=== PATIENT | male | born 1950 | race Caucasian/White ===

== ENCOUNTER 2016-05-22 14:33 | Emergency (ER) | payer MEDICARE, OTHER ==
--- NOTE | 2016-05-22 15:42 | ERNOTE ---
Dyspnea - Date Date of Service: 05/22/16 - General Presenting Symptoms: shortness of breath Time Seen by Provider: 05/22/16 15:31 Source: patient, RN notes reviewed, old records Exam Limitations: no limitations - Immun/Allergies/Home Medications Immunizations: IMMUNIZATION HX Immunizations Up to Date No History of Influenza Vaccine No Hx Pneumococcal Vaccination No Allergies/Adverse Reactions: Allergies No Known Allergies Allergy (Verified 05/22/16 14:47) Home Medications: HOME MEDICATIONS Albuterol Sulfate [Proair Hfa] 8.5 gm IH Q6H PRN 04/26/12 [Last Taken Unknown] Budesonide/Formoterol Fumarate [Symbicort 160-4.5 Mcg Inhaler] 6 gm IH BID 04/26 [Last Taken Unknown] Venlafaxine HCl [Effexor Xr] 75 mg PO DAILY 04/26/12 [Last Taken Unknown] amLODIPine BESYLATE [Norvasc (Amlodipine)] 5 mg PO DAILY 04/26/12 [Last Taken Unknown] metFORMIN HCL [Metformin HCl ER] 1,000 mg PO BID 04/26/12 [Last Taken Unknown] Carbidopa/Levodopa 25/100 [Sinemet 25/100] 1 tab PO BID 05/22/16 [Last Taken Unknown] - History of Present Illness Narrative: 66 y/o male to ED by private vehicle from home for dyspnea that began this morning. He woke up around 0600 and was unable to go back to sleep because of his shortness of breath. He has COPD, but denies any cough. He reports having heartburn earlier today, but this resolved without intervention. The dyspnea does not seem to be related to activity and is occurring intermittently. He denies any cardiac problems. He has chronic lower extremity edema, but reports that it is not worse than usual. 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 Denies: upper resp illness, out of meds, sports/exercise, emotionally upset Modifying Factors - (Improves): Reports: nothing Modifying Factors (Worsens): Reports: nothing Associated Symptoms-Dyspnea: Reports: ankle/leg swelling. Denies: fever/chills , sweating, chest pain/discomfort, palpitations, cough, wheezing, leg/calf pain , dizziness, lightheadedness, anxiety Prior Treatment: Denies: recently seen Review of Systems - Review of Systems Constitutional: Present: fatigue. Absent: recent illness, fever, chills, malaise EYE: Present: no symptoms reported ENT: Absent: nose congestion, sore throat Respiratory: Present: shortness of breath, orthopnea. Absent: cough, wheezing Cardiology: Present: edema. Absent: chest pain, palpitations, claudication Gastrointestinal/Abdominal: Absent: nausea, vomiting, abdominal pain Genitourinary: Present: no symptoms reported Musculoskeletal: Present: no symptoms reported Skin: Absent: rash, lesions, change in color Neurological: Absent: headache, dizziness/light-headedness Endocrine: Present: no symptoms reported Hematologic/Lymphatic: Present: no symptoms reported Psych: Present: See HPI - Patient's Past Medical History Patient History - Medical: Anxiety, Diabetes Type 2, Depression, GERD, Obesity, Osteoarthritis, Other - Parkinson's disease Patient History - Cardiac/Respiratory: COPD, Hypertension Patient History - Cancer: No Hx of Cancer Patient History - Surgical Procedures: Colonoscopy, Total Knee Replacement, T & A, ENT Patient History - Other: None - Social History Living Situations: home Abuse History: No History of abuse Psych History: Hx of Anxiety Smoking Status: Former smoker Smoking Stop Date: 06/16/13 Alcohol Use: none Drug Use: none - Immunizations Immunizations Up to Date: No Hx Pneumococcal Vaccination: No History of Influenza Vaccine: No Physical Exam - Physical Exam General Appearance: Present: wd/wn, alert, no apparent distress, obese Eye Exam: Normal inspection: bilateral Ears, Nose, Throat: Present: normal ENT inspection, normal pharynx. Absent: abnormal TM (R), abnormal TM (L), nasal congestion Neck: Present: nontender, supple, other - edematous area at left lateral neck base - nontender, appears to be lipoma Respiratory: Present: no respiratory distress, normal breath sounds, no accessory muscle use, lungs clear Cardiovascular/Chest: Present: no murmur, normal peripheral pulses, tachycardia Gastrointestinal/Abdominal: Present: normal bowel sounds, nontender, nondistended, soft Extremity Exam: Present: extremity edema - lower legs/feet. Absent: calf tenderness Neurological Exam: Present: alert, oriented, other - Tremors Skin Exam: Present: warm/dry, other - mony discoloration to lower legs ED Progress - Results and Orders Patient's Lab Results:: I have reviewed the patient's lab results. - Vital Signs Patient's Vital Signs:: I have reviewed the patient's vital signs. Vital Signs: Vital Signs 05/22/16 05/22/16 05/22/16 14:39 15:06 15:25 Temperature 36.8 C Pulse Rate 103 H 107 H 106 H Respiratory 24 H 21 H 17 Rate Blood Pressure 179/105 196/100 193/109 O2 Sat by Pulse 98 99 96 Oximetry 05/22/16 15:26 Temperature Pulse Rate 106 H Respiratory Rate Blood Pressure O2 Sat by Pulse Oximetry - EKG EKG: other - Sinus tachycardia EKG read: Reviewed by me - X-Ray X-Ray #1 X-Ray: chest Interpretation: Reviewed by me X-ray Comments: No acute cardiopulmonary findings - Progress/Reassessment Chief Complaint: Dyspnea Progress:: Unchanged Progress Note-Subjective: 05/22/16 17:14 Discussed lab results - elevated Ddimer r/t his dyspnea that occurs without any relation to activity and tachycardia - needs CT for PE but renal function is impaired. Discussed admit overnight for VQ scan tomorrow. Patient is not sure he wants to stay overnight. He contacted his who is coming to discuss the situation. Remains tachycardic at 108 at rest with episodic dyspnea. 05/22/16 18:15 Patient now reports that his will not be here for over an hour. He wants to go home and pack some belonging and shower before being admitted. Informed that he would have to leave AMA. Reiterated my concerns regarding a possible pulmonary embolism and need for further testing. Discussed risks of leaving without appropriate care including . Remains tachycardic at 100-110 with SpO2 in upper 90's. Departure Clinical Impression: Elevated d-dimer Dyspnea Qualifiers: Dyspnea type: shortness of breath Qualified Code(s): R06.02 - Shortness of breath - Departure Disposition: Against medical advice Condition: Undetermined Referrals: Codey Kern MD [Primary Care Provider] -
[2016-05-22 16:11] LABS: Hematocrit 36.8 % (42.0-52.0); Hemoglobin 11.6 gm/dL (13.5-18.0); Mean Cell Volume 83.6 fl (78-100); Mean Corpuscular Hemoglobin 26.4 pg (27-31); Mean Corpuscular Hgb Conc 31.5 g/dl (32-36); Mean Platelet Volume 9.3 fl (6.0-9.5); Neutrophil # 6.3 K/mm3 (1.3-6.0); Neutrophil % 77.1 % (42-75.0); Platelet Count 246 K/mm3 (150-450); Red Cell Distribution Width 13.9 % (11.5-14.0); White Blood Count 8.2 K/mm3 (4.0-10.5)
--- OUTSIDE RECORDS SUMMARY | 2016-05-22 16:11 | XMS REPORT | Continuity of Care Document ---
:1950 Author Organization [facility] ([facility]) Address [address] [place] [address] Phone [phone] Care Team Providers Name Role Phone Unavailable Primary Care Provider Unavailable Source Comments This disclosure is being made pursuant to the Care Everywhere program, applicable federal and state laws, and may not contain all informaitonavailable regarding this patient.[facility] ([facility]) Active Allergies and Adverse Reactions Not on File Current Medications Not on file Active Problems Problem Noted Date Primary localized osteoarthrosis, lower leg 05/05/2000 Social History Tobacco Use Types Packs/Day Years Used Date Never Assessed Last Filed Vital Signs Vital Sign Reading Time Taken Blood Pressure - - Pulse - - Temperature - - Respiratory Rate - - Height 1.79 m (5' 10.47") 05/05/2000 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
[2016-05-22 16:23] LABS: ALT 10 U/L (19-67); AST 20 U/L (0-48); Alkaline Phosphatase * 92 U/L (50-170); Anion Gap 14.7 mmol/L (6.8-13.8); BNP * 257 pg/mL (5-350); BUN/Creatinine Ratio 21.7 (9.0-21.6); Bilirubin, Total 0.3 mg/dL (0.0-1.1); Blood Urea Nitrogen 35 mg/dL (6-23); Calcium * 9.3 mg/dL (7.9-10.9); Carbon Dioxide 26.5 mmol/L (24-32.6); Chloride 102 mmol/L (97-106); Glucose * 111 mg/dL (70-110); Potassium 4.2 mmol/L (3.4-4.6); Sodium 139 mmol/L (132-142); Total Protein 8.1 gm/dL (6.2-8.2)
[2016-05-22 16:26] LABS: Troponin I Less than 0.017 ng/ml (0.00-0.10)
[2016-05-22 17:21] VITALS: BP 191/94
== END 2016-05-22 18:18 | disposition left against medical advice (07) ==
LOC: ER 14:33
DX: R06.02 Shortness of breath (principal); R79.89 Other specified abnormal findings of blood chemistry; Z53.29 Procedure and treatment not carried out because of patient's decision for other reasons; Z87.891 Personal history of nicotine dependence; E11.9 Type 2 diabetes mellitus without complications; I10 Essential (primary) hypertension; J44.9 Chronic obstructive pulmonary disease, unspecified; F41.9 Anxiety disorder, unspecified

== ENCOUNTER 2016-05-22 21:12 | Observation (INO) | payer MEDICARE, OTHER ==
--- OUTSIDE RECORDS SUMMARY | 2016-05-22 21:43 | XMS REPORT | Continuity of Care Document ---
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
--- NOTE | 2016-05-22 21:46 | ERNOTE ---
Dyspnea - Date Date of Service: 05/22/16 - General Presenting Symptoms: shortness of breath Time Seen by Provider: 05/22/16 21:34 Source: patient, RN notes reviewed, old records Exam Limitations: no limitations - Immun/Allergies/Home Medications Immunizations: IMMUNIZATION HX Immunizations Up to Date No History of Influenza Vaccine No Hx Pneumococcal Vaccination No Allergies/Adverse Reactions: Allergies No Known Allergies Allergy (Verified 05/22/16 14:47) Home Medications: HOME MEDICATIONS Albuterol Sulfate [Proair Hfa] 8.5 gm IH Q6H PRN 04/26/12 [Last Taken Unknown] Budesonide/Formoterol Fumarate [Symbicort 160-4.5 Mcg Inhaler] 6 gm IH BID 04/26 [Last Taken Unknown] Venlafaxine HCl [Effexor Xr] 75 mg PO DAILY 04/26/12 [Last Taken Unknown] amLODIPine BESYLATE [Norvasc (Amlodipine)] 5 mg PO DAILY 04/26/12 [Last Taken Unknown] metFORMIN HCL [Metformin HCl ER] 1,000 mg PO BID 04/26/12 [Last Taken Unknown] Carbidopa/Levodopa 25/100 [Sinemet 25/100] 1 tab PO BID 05/22/16 [Last Taken Unknown] - History of Present Illness Narrative: 66 y/o male returns to ED by private vehicle for shortness of breath. He was evaluated for this earlier today by me. No cause was determined for his shortness of breath. This began without incident shortly after he woke up today. It has occurred in intermittent bouts without regard to activity. He denies any chest pain. He denies any cough. His D-dimer was elevated at 0.63. His chest xray was normal. His troponin was negative. His EKG was remarkable only for tachycardia - which continues to be 100 to 110. His creatinine was 1.61 so he was not able to have a CT for PE. I discussed staying overnight and having a VQ scan tomorrow with him, but he left AMA to take care of some things at home. He has continued to have episodic dyspnea throughout the evening. 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 Denies: fever/chills , chest pain/discomfort, palpitations, cough, wheezing, leg/calf pain, dizziness , lightheadedness, anxiety Review of Systems - Review of Systems Constitutional: Absent: recent illness, fever, chills EYE: Present: no symptoms reported ENT: Absent: nose congestion, sore throat Respiratory: Present: shortness of breath, orthopnea - chronic - sleeps in recliner. Absent: cough, wheezing Cardiology: Present: edema - reports not worse than usual. Absent: chest pain, palpitations, syncope, claudication Gastrointestinal/Abdominal: Absent: nausea, vomiting, diarrhea, abdominal pain Genitourinary: Present: no symptoms reported Musculoskeletal: Absent: muscle pain, joint pain Skin: Absent: rash, lesions, lumps, change in color Neurological: Present: tremors. Absent: headache, dizziness/light-headedness Endocrine: Present: no symptoms reported Hematologic/Lymphatic: Present: no symptoms reported Psych: Absent: anxiety - Patient's Past Medical History Patient History - Medical: Anxiety, Diabetes Type 2, Depression, GERD, Obesity, Osteoarthritis, Other Patient History - Cardiac/Respiratory: COPD, Hypertension Patient History - Cancer: No Hx of Cancer Patient History - Surgical Procedures: Colonoscopy, Total Knee Replacement, T & A, ENT Patient History - Other: None - Social History Living Situations: spouse Abuse History: No History of abuse Psych History: Hx of Anxiety Smoking Status: Former smoker - quit 2013 Alcohol Use: none Drug Use: none - Immunizations Immunizations Up to Date: No Hx Pneumococcal Vaccination: No History of Influenza Vaccine: No Physical Exam - Physical Exam General Appearance: Present: wd/wn, alert, no apparent distress, obese Eye Exam: Normal inspection: bilateral Ears, Nose, Throat: Present: normal ENT inspection Neck: Present: normal inspection, nontender, supple, other - swollen area left lateral base of neck - nontender Respiratory: Present: no respiratory distress, normal breath sounds, no accessory muscle use, lungs clear Cardiovascular/Chest: Present: no murmur, normal peripheral pulses, tachycardia Gastrointestinal/Abdominal: Present: nontender, nondistended, soft Back Exam: Present: normal inspection, no CVA tenderness Neurological Exam: Present: alert, oriented, other - parkonsonian rigidity, chronic tremor. Absent: normal mood/affect - flat affect Skin Exam: Present: normal color, warm/dry ED Progress - Vital Signs Patient's Vital Signs:: I have reviewed the patient's vital signs. Vital Signs: Vital Signs 05/22/16 05/22/16 05/22/16 14:39 17:20 21:17 Temperature 36.8 C 36.7 C Pulse Rate 107 H Respiratory 18 Rate Blood Pressure 191/94 145/88 O2 Sat by Pulse 94 Oximetry - Progress/Reassessment Chief Complaint: Dyspnea Progress:: Unchanged Plan - Plan Plan: Hospitalist contacted regarding observation admit for shortness of breath to r/ o PE. No etiology has been determined for his dyspnea, but he has been tachycardic with an elevated D-dimer and chronic immobility due to his Parkinson 's disease. CT PE study cannot be obtained d/t renal function and a VQ scan cannot be done until morning. Will initiate Lovenox and IV fluids in department. Departure Clinical Impression: Elevated d-dimer, Renal insufficiency Dyspnea Qualifiers: Dyspnea type: shortness of breath Qualified Code(s): R06.02 - Shortness of breath - Departure Disposition: [facility] Condition: Fair
--- OUTSIDE RECORDS SUMMARY | 2016-05-22 21:47 | XMS REPORT | Continuity of Care Document ---
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
[2016-05-22] MEDS ORDERED: NORMAL SALINE 1,000 ML IV ONE (22:08)
[2016-05-22] MEDS ORDERED: ENOXAPARIN SODIUM 40 MG/0.4 ML SYRG SC ONE (22:18)
[2016-05-22] MEDS ORDERED: ENOXAPARIN SODIUM 80 MG/0.8 ML DISP.SYRIN SC ONE (22:22)
[2016-05-22] MEDS: ENOXAPARIN SODIUM 60 MG/0.6 ML SYRG SC SCH (22:25)
[2016-05-22] MEDS ORDERED: ALBUTEROL SULFATE/IPRATROPIUM 3 ML NEBU IH PRN (23:52)
--- NOTE | 2016-05-23 00:17 | HP ---
Chief Complaint - Chief Complaint Date of Service: 05/23/16 Time of Service: 00:21 Chief Complaint: Dyspnea while at rest History of Present Illness: 66 years old male adm from the ER with reports of dyspnea while at rest, that had since self resolved. pt stated he was having shortness of breath with deep breathing. He used his inhalers without much relief so he came to the ER. He denies chest pain, palpitation, cough, headache, Tachypnea or dizziness. Pt went home to get errands done and return to the hospital to get CTA chest due for elevated dimer 0.63 and concern for PE. Bun/Cre --->35/1.61 which is within range of pt baseline on previous adm Bun/Cre 45/1.54. His spo2 93% on room air. CXR: No acute cardio-pulmonary abnormality. Plan of care discussed with pt he verbalized understanding and agree. - Patient's Past Medical History Patient History - Medical: Anxiety, Diabetes Type 2, Depression, GERD, Obesity, Osteoarthritis, Other - parkinson disease Patient History - Cardiac/Respiratory: COPD, Hypertension, Other - chronic BLLE piting edema Patient History - Cancer: No Hx of Cancer Patient History - Surgical Procedures: Colonoscopy, Total Knee Replacement - Bilateral knee, T & A, ENT - nasal septum repair Patient History - Other: None - Social History Living Situations: spouse Abuse History: No History of abuse Psych History: Hx of Anxiety Smoking Status: Former smoker - quit 2014 Have you smoked in the past 12 months: No Smoking Stop Date: 07/30/12 Alcohol Use: none Drug Use: none - Immunizations Immunizations Up to Date: No Hx Pneumococcal Vaccination: No History of Influenza Vaccine: No Review Of Systems (GEN) - Review of Systems Generalized/Overall Review: Present: No Symptoms Reported EENTM: Present: No Symptoms Reported Respiratory: Present: No Symptoms Reported Cardiac: Present: No Symptoms Reported Abdominal: Present: No Symptoms Reported Genitourinary: Present: No Symptoms Reported Musculoskeletal: Present: No Symptoms Reported Neurological: Present: Tremors Skin: Present: No Symptoms Reported Endocrine: Present: No Symptoms Reported Immunizations: IMMUNIZATION HX Immunizations Up to Date No History of Influenza Vaccine No Hx Pneumococcal Vaccination No Allergies/Adverse Reactions: Allergies Allergy/AdvReac Type Severity Reaction Status Date / Time No Known Allergies Allergy Verified 05/22/16 14:47 Home Medications: HOME MEDICATIONS Albuterol Sulfate [Proair Hfa] 8.5 gm IH Q6H PRN 04/26/12 [Last Taken Unknown] Venlafaxine HCl [Effexor Xr] 75 mg PO DAILY 04/26/12 [Last Taken 05/22/16 09:00] amLODIPine BESYLATE [Norvasc (Amlodipine)] 5 mg PO DAILY 04/26/12 [Last Taken 09:00] metFORMIN HCL [Metformin HCl ER] 1,000 mg PO BID 04/26/12 [Last Taken 05/22/16 17:00] Carbidopa/Levodopa 25/100 [Sinemet 25/100] 1 tab PO BID 05/22/16 [Last Taken 08/02 20:00] Exam - Exam Vital Signs: Vital Signs - Last Taken Temp 36.3 C L 05/22/16 21:54 Pulse 89 05/22/16 22:07 Resp 16 05/22/16 22:07 BP 149/85 05/22/16 22:07 Pulse Ox 93 05/22/16 22:07 Constitutional: Present: Alert, Oriented x3, Cooperative, No distress, Middle aged, Obese ENT Exam: Present: moist mucous membranes Eye Exam: bilateral eye: PERRL Neck: Present: full range of motion Back Exam: Present: no CVA tenderness Respiratory: Present: lungs clear, normal breath sounds, no respiratory distress , no accessory muscle use Cardiovascular/Chest: Present: normal peripheral pulses, regular rate, rhythm, no chest tenderness, no gallop Peripheral Pulses: dorsalis-pedis (R): 2+, dorsalis-pedis (L): 2+ Abdomen: Present: Normal bowel sounds, soft, nontender, no rebound tenderness /Rectal: Present: Exam deferred Extremity: Present: normal range of motion, lower extremity edema, pedal edema, slow capillary refill, swelling Skin Exam: Present: warm/dry Neurologic: Present: oriented x 3 Appearance: Present: appropriate appearance Eye contact: Present: cooperative, good eye contact Thoughts: Present: normal thought pattern Diagnostic Studies: Laboratory Tests 05/22/16 05/22/16 05/22/16 15:55 15:55 15:55 WBC 8.2 RBC 4.40 L Hgb 11.6 L Hct 36.8 L MCV 83.6 MCH 26.4 L MCHC 31.5 L Neutrophils % 77.1 H Lymphocytes % 15.5 L Monocytes % 6.3 Basophils % 0.2 Neutrophils # 6.3 H Lymphocytes # 1.3 L D-Dimer 0.63 H Sodium 139 Plasma Sodium 139 Potassium 4.2 Chloride 102 Carbon Dioxide 26.5 Anion Gap 14.7 H BUN 35 H Creatinine 1.61 H Est GFR (Non-Af Amer) 46 L BUN/Creatinine Ratio 21.7 H Random Glucose 111 H Calcium 9.3 Calcium Adj for Albumin 9.0 Total Bilirubin 0.3 AST 20 ALT 10 L Alkaline Phosphatase 92 Troponin I Less than 0.017 B-Natriuretic Peptide 257 Total Protein 8.1 CXR: No acute cardiopulmonary abnormality Assessment/Plan - Narrative Narrative: Dyspnea at rest - possible due to COPD exacerbation vs PE PE hemodynamically stable, no broderick dyspnea or hypoxemia to consider thrombolysis Pt with chronic BLLE pitting edema, negative levy sign. Continue with home dose of inhalers. Supplemented oxygen PRN CXR: No acute cardiopulmonary abnormality On ad Dimer 0.63: unable to obtain CTA chest due to TOMAS (Bun/ cre 35/1.61) VQ scan in the morning if negative D/C lovenox. Troponin negative Acute on chronic renal insufficient - On adm BUN/Cre 35/1.61 on previous adm Bun/ cre 42/1.62 GFR 46 Trop 0.017 IVF hydration continue to monitor CMP tomorrow Diabetes Monitor Accu-check AC+HS and low dose SSI Resume home dose of medications Will hold metformin in presence of TOMAS Consistent card diet Hypertension on adm BP 145/88 Monitor vital signs resume home dose of medication Parkinson- stable continue with home dose of medications Code status: DNR VTE ppx: SCD and ambulate VTe ppx: Protonix Anticipate discharge home 0-2 days Time 40 minutes and previous records reviewed. - Assessment/Plan (1) Renal insufficiency Problem: Acute (2) Hypertension Problem: Chronic Qualifiers: Hypertension type: essential hypertension Qualified Code(s): I10 - Essential (primary) hypertension (3) COPD (chronic obstructive pulmonary disease) Problem: Chronic
[2016-05-23 05:38] LABS: Hematocrit 31.7 % (42.0-52.0); Mean Cell Volume 83.9 fl (78-100); Mean Corpuscular Hemoglobin 26.5 pg (27-31); Mean Corpuscular Hgb Conc 31.5 g/dl (32-36); Neutrophil # 3.2 K/mm3 (1.3-6.0); Neutrophil % 62.8 % (42-75.0); Platelet Count 196 K/mm3 (150-450); Red Blood Count 3.78 M/mm3 (4.7-6.0); White Blood Count 5.1 K/mm3 (4.0-10.5)
[2016-05-23 05:51] LABS: Anion Gap 12.4 mmol/L (6.8-13.8); BUN/Creatinine Ratio 21.8 (9.0-21.6); Calcium * 8.7 mg/dL (7.9-10.9); Carbon Dioxide 27.4 mmol/L (24-32.6); Estimated Creat Clear 53.4; Potassium 3.8 mmol/L (3.4-4.6)
[2016-05-23] MEDS: INSULIN LISPRO 100 UNITS/ML VIAL SC SCH ×3 (06:19→16:28)
[2016-05-23] MEDS ORDERED: FLUTICASONE/SALMETEROL 14 PUFF DISK.W.DEV IH SCH (07:00)
[2016-05-23] MEDS ORDERED: amLODIPine BESYLATE 5 MG TABLET PO SCH (09:00)
[2016-05-23] MEDS ORDERED: CARBIDOPA/LEVODOPA 25/100 1 TAB TABLET PO SCH (09:00)
[2016-05-23] MEDS ORDERED: VENLAFAXINE HCL 37.5 MG CAP.SR.24H PO SCH (09:00)
[2016-05-23] MEDS: ENOXAPARIN SODIUM 60 MG/0.6 ML SYRG SC SCH (09:50)
[2016-05-23 15:53] VITALS: BP 150/79
--- NOTE | 2016-05-23 16:35 | DS ---
(1) Dyspnea Problem: Acute Qualifiers: Dyspnea type: shortness of breath Qualified Code(s): R06.02 - Shortness of breath (2) Elevated d-dimer Problem: Acute (3) Renal insufficiency Problem: Chronic (4) COPD (chronic obstructive pulmonary disease) Problem: Chronic Qualifiers: COPD type: unspecified COPD Qualified Code(s): J44.9 - Chronic obstructive pulmonary disease, unspecified (5) Hypertension Problem: Chronic Qualifiers: Hypertension type: essential hypertension Qualified Code(s): I10 - Essential (primary) hypertension Description of Stay: Date of admission : 05/22/16 Date of discharge: 05/23/16 Description of stay: Alcides is a 66 year old male who was admitted with dyspnea. chest xray done 05/22/16 showed no acute changes. lab work done in the emergency room was significant for an elevated d-dimer and creatinine at 1.61. Patient was admitted for dyspnea, possible copd exacerbation vs PE need V/Q scan in the am. Patient remained hemodynamically stable overnight. On 05/23/16 V /Q scan was done and showed low probably for PE. Patient was discharged home later that day on 05/23/16. Follow up was made for an outpatient pharmacological stress test and echo with follow up office visit after testing. Procedures Performed: none Discharge Disposition: Home self care Disposition: Home self-care Condition: Undetermined Discharge Activity: Activity as tolerated Discharge Diet: General/regular food Referrals: Codey Kern MD [Primary Care Provider] - Problem Oriented Discharge Instructions to Patient/Family: Chronic Obstructive Pulmonary Disease, Hadg-gm-Nuty Additional Patient Instructions (free text): [facility] Home Health Courtesy Visit- fax discharge instructions and medications. Needs assistance setting up medications and assessment of home environment. echo in 3 weeks. pharmacological stress test in 3 weeks. follow up with dr. kern after echo and stress test. Complete Home Medications List: Complete Home Medication List: Albuterol Sulfate [Proair Hfa] 8.5 gm IH Q6H PRN 04/26/12 Venlafaxine HCl [Effexor Xr] 75 mg PO DAILY 04/26/12 amLODIPine BESYLATE [Norvasc] 5 mg PO DAILY 04/26/12 metFORMIN HCL [Metformin HCl ER] 1,000 mg PO BID 04/26/12 Carbidopa/Levodopa 25/100 [Sinemet 25/100] 1 tab PO BID 05/22/16
[2016-05-23 17:21] LABS: TSH * 0.947 uIU/mL (0.358-3.74)
[2016-05-23 17:46] LABS: Iron 48 mcg/dL (35-120); Transferrin Sat. (% Sat.) 18 % (15-55)
== END 2016-05-23 17:31 | disposition home or self-care (01) ==
LOC: ER 21:12 → MS 21:43
PROVIDERS: ADMIT Nurse Practitioner; ATTEND Internal Medicine
DX: J44.1 Chronic obstructive pulmonary disease with (acute) exacerbation (principal); R06.02 Shortness of breath; Z87.891 Personal history of nicotine dependence; E11.9 Type 2 diabetes mellitus without complications; G20 Parkinson's disease; I12.9 Hypertensive chronic kidney disease with stage 1 through stage 4 chronic kidney disease, or unspecified chronic kidney disease; F41.9 Anxiety disorder, unspecified; R79.89 Other specified abnormal findings of blood chemistry; Z53.29 Procedure and treatment not carried out because of patient's decision for other reasons
CPT/HCPCS: 36415; 71020; 78582; 80048; 80053; 82607; 83540; 83550; 83880; 84443; 84484; 85025; 85379; 93005; 94640; 94760; 96372; 99284; A9539; A9540; G0378